=== PATIENT | female | born 1990 | race African-American/Black ===

== ENCOUNTER 2016-07-31 07:40 | Inpatient (IN) ==
[2016-07-31 08:31] LABS: BILIRUBIN URINE NEGATIVE (NEGATIVE); BLOOD URINE NEGATIVE (NEGATIVE); CLARITY CLEAR (CLEAR); COLOR YELLOW; GLUCOSE URINE NEGATIVE (NEGATIVE); LEUKOCYTES URINE NEGATIVE (NEGATIVE); NITRITE URINE NEGATIVE (NEGATIVE); PROTEIN URINE NEGATIVE (NEGATIVE); UROBILINOGEN URINE NORMAL
[2016-07-31 08:44] LABS: URINE CULTURE PL NEEDED? YES; URINE EPITHELIAL CELLS <10 /HPF (<10); URINE RBC <10 /HPF (<10); URINE SOURCE CLEAN CATCH; URINE WBC <10 /HPF (<10)
[2016-07-31 08:47] LABS: AGAP 12; ALKALINE PHOSPHATASE 81 U/L (32-104); AMYLASE 61 U/L (20-200); BUN 6 mg/dL (8-22); CALCIUM 9.2 mg/dL (8.8-10.2); CHLORIDE 101 mmol/L (98-107); COSMO 265; GOT 27 U/L (10-30); GPT 28 U/L (10-36); LIPASE 17 U/L (13-60); POTASSIUM 3.7 mmol/L (3.5-5.1); SODIUM 134 mmol/L (136-145); TCO2 22 mmol/L (25-35); TOTAL PROTEIN 7.3 g/dL (6.3-8.3)
--- NOTE | 2016-07-31 10:42 | Diag Imaging Result Document ---
PROCEDURE NAME: US GB < RUQ (LIMITED) - 07/31/2016 ULTRASOUND OF THE GALLBLADDER, LIMITED: INDICATION: Pain. FINDINGS: The aorta, IVC, and pancreas are within normal limits. The right kidney appears normal. There is no hydronephrosis. The gallbladder appears free of stones and sludge and has a normal caliber wall. The common bile duct measures 4 mm. The portal vein is patent. IMPRESSION: Normal right upper quadrant ultrasound. -6
[2016-07-31 11:11] LABS: BASO% 0.1 % (0.0-0.8); EOS# 0.03 X1000 (0.0-0.7); EOS% 0.2 % (0.0-10.0); HEMATOCRIT 40.7 % (37.0-47.0); HEMOGLOBIN 13.8 g/dL (12.0-16.0); IMM GRAN# 0.02 X1000 (0.0-0.04); IMM GRAN% 0.2 % (0.0-0.5); LYMPH% 8.9 % (20.5-51.1); MANUAL DIFF NEEDED? NO; MCH 33.3 PG (27-31); MCHC 33.9 g/dL (33-37); MCV 98.3 FL (81-99); MONO# 0.66 X1000 (0.11-0.59); MONO% 5.3 % (1.7-9.3); MPV 10.2 FL (7.4-10.4); NEUT% 85.3 % (42.2-75.2); PLT 342 X1000 (130-400); RBC 4.14 XMIL (4.2-5.4)
[2016-07-31] MEDS ORDERED: NS 1,000 ML IV ONE (14:06)
[2016-07-31] MEDS ORDERED: ZOSYN 3.375 GM/NS 3.375 GM/50 ML IVPB IV ONE (14:09)
--- NOTE | 2016-07-31 14:11 | PROVIDER DOCUMENTATION ---
This chart was entered by Paty Madison Scribe, acting as scribe for Jonathan Alfred MD. HPI-Abdominal Pain/GI Problem - General Chief Complaint: Abdominal Pain Stated Complaint: ABD PAIN Time Seen by Provider: 07/31/16 09:09 Source: patient Allergies/Adverse Reactions: Patient Allergies Allergy/AdvReac Type Severity Reaction Status Date / Time No Known Allergies Allergy Verified 03/26/16 18:10 Home Medications: Home Medication List Medication Instructions Recorded Confirmed Last Taken Type Pnv Cmb#95/Ferrous Fumarate/FA 1 each PO DAILY 04/28/16 04/28/16 04/27/16 09:00 History [ Tablet] Hydrocodone/APAP 10 mg/325 mg 1 each PO Q3-4H PRN PRN #20 tablet 04/30/16 Unknown Rx [[place]-10] Ibuprofen [Motrin] 800 mg PO Q8H PRN PRN #30 tablet 04/30/16 Unknown Rx - History of Present Illness-ABD Nature of Presenting Problems: Pt is 26 y/o F presents to the ED with RUQ pain. Pt states pain started last night at 1000. Pt states N and V. Abdominal Pain Onset Location: reports: epigastric Pain Radiation: reports: RUQ Quality of Pain: reports: aching, cramping, throbbing Severity in ED: reports: moderate Onset/Duration: reports: last night (1000) Timing: reports: still present Activities at Onset: reports: light activity Modifying Factors: improves with: nothing Associated Symptoms: reports: nausea, vomiting. denies: anxiety, arm pain, back /neck pain, chest pain, constipation, cough, diaphoresis, diarrhea, dizziness, EENT symptoms, fatigue, fever/chills, genitourinary problems, headaches, heartburn, joint pain, loss of appetite, malaise, muscle aches, sinus congestion /drainage, rash, seizure, shortness of breath, sensory/motor loss, pain with inspiration, swelling/mass in abdomen, syncope, weakness, trouble walking Last BM: 24 hours ago Dark Stools Present?: reports: none noticed Rectal Bleeding: reports: none Rectal Pain: reports: none # of Vomiting Episodes: 2 Emesis Description: reports: clear Bruising or Bleeding Gums?: No Similar Symptoms Previously?: Yes Recently seen or treated by another doctor?: No Review of Systems - Adult - REVIEW OF SYSTEMS - ADULT Constitutional: reports: no symptoms reported Eyes: reports: no symptoms reported Ears, Nose, Mouth & Throat: reports: no symptoms reported Cardiovascular: reports: no symptoms reported Respiratory: reports: no symptoms reported Gastrointestinal: reports: abdominal pain, nausea, vomiting. denies: diarrhea Genitourinary: reports: no symptoms reported Musculoskeletal: reports: no symptoms reported Integumentary: reports: no symptoms reported Neurological: reports: no symptoms reported Psychiatric: reports: no symptoms reported Endocrine: reports: no symptoms reported Hematologic/Lymphatic: reports: no symptoms reported Allergic/Immunologic: reports: no symptoms reported All Other Systems: Reviewed and Negative Past History - Adult - PAST MEDICAL HISTORY-ADULT Review of Records: reports: Nursing Assessment Review, Medications Reviewed, Social history reviewed & non-contributory. Major Childhood Illnesses: reports: denies history Cardiovascular: reports: denies history Respiratory: reports: denies history Gastrointestinal: reports: ulcer Obstetrical/Gynecological: reports: denies history Genitourinary: reports: denies history Musculoskeletal: reports: denies history Neurological: reports: denies history Endocrine/Immune: reports: denies history Other Conditions: reports: denies history - PRIOR SURGERIES/PROCEDURES Surgical/Procedure History: reports: tonsillectomy - IMMUNIZATION STATUS Childhood Immunizations: See Nurse Assessment Flu Vaccine: See Nurse Assessment - FAMILY HISTORY Family History: reviewed, not pertinent - SOCIAL HISTORY Smoking: cigarettes, less than 1 pack/day Provider spent 3-5 mins advising pt. on dangers of tobacco.: Discussed manners to quit use, and f/u contacts for add'l counseling. Substance Use: denies Living Situation: family Physical Exam-General - PHYSICAL EXAM-ADULT Initial Vital Signs Reviewed: Yes - CONSTITUTIONAL General Appearance: appears well, alert, no apparent distress - EYES Eyes: PERRL/EOMI, pink conjunctivae - HEAD, EARS, NOSE, MOUTH & THROAT HENMT: normocephalic/atraumatic, moist mucous membranes, normal ENT inspection, TMs normal, pharynx normal - NECK Neck: non-tender, full range of motion, supple, normal inspection - RESPIRATORY Respiratory: chest non-tender, lungs clear, normal breath sounds, no pleuratic chest pain, no respiratory distress, no accessory muscle use - CARDIOVASCULAR Cardiovascular: normal peripheral pulses, regular rate, rhythm, no edema, no gallop, no JVD, no murmur - GASTROINTESTINAL (ABDOMEN) Abdominal Exam: normal bowel sounds, soft, no organomegaly, no pulsatile mass, tenderness (RUQ) - LYMPHATIC Lymphatic: no adenopathy - MUSCULOSKELETAL Back Exam: normal inspection, no CVA tenderness, no vertebral tenderness Extremity: normal range of motion, non-tender, normal gait, normal inspection, no pedal edema, no calf tenderness, normal capillary refill - SKIN Integumentary: normal color, normal turgor, warm/dry - NEUROLOGIC Neurologic: grossly normal - PSYCHIATRIC Psych/Mental Status: normal mood/affect, oriented x 3 Progress - PLAN OF CARE/RESULTS Progress/Plan/Lab Results: Vital Signs - 8 hr 07/31/16 07:46 Temperature 97.8 F Pulse Rate 92 H Respiratory Rate 18 Blood Pressure 135/75 O2 Sat by Pulse Oximetry 100 Laboratory Results - last 24 hr 07/31/16 07/31/16 07/31/16 07:56 07:56 08:11 Sodium 134 L Potassium 3.7 Chloride 101 Carbon Dioxide 22 L Anion Gap 12 BUN 6 L Creatinine 0.7 Estimated GFR/1.73 m2 > 60 BUN/Creatinine Ratio 9 Glucose 91 Calculated Osmolality 265 Calcium 9.2 Total Bilirubin 0.30 AST 27 ALT 28 Alkaline Phosphatase 81 Total Protein 7.3 Albumin 4.0 Globulin 3.0 Albumin/Globulin Ratio 1.0 Amylase 61 Lipase 17 Urine Source CLEAN CATCH Urine Color YELLOW Urine Clarity CLEAR Urine pH 5.0 Ur Specific [place] 1.010 Urine Protein NEGATIVE Urine Ketones NEGATIVE Urine Blood NEGATIVE Urine Nitrite NEGATIVE Urine Bilirubin NEGATIVE Urine Urobilinogen NORMAL Urine Microscopic RBC <10 Urine WBC NEGATIVE Urine Microscopic WBC <10 Ur Epithelial Cells <10 Urine Bacteria 4+ Urine Glucose NEGATIVE Urine Test NEGATIVE Orders Category Date Time Status NPO Diet 07/31/16 07:49 Active AMYLASE [CHEM] Stat Lab 07/31/16 08:11 Completed COMPREHENSIVE METABOLIC PANEL [CHEM] Stat Lab 07/31/16 08:11 Completed LIPASE [CHEM] Stat Lab 07/31/16 08:11 Completed TEST-URINE [PREG] Stat Lab 07/31/16 07:[address] W/POSS RFLX CULT [URINALYSIS] Stat Lab 07/31/16 07:56 Completed URINE CULTURE [RM] Routine Lab 07/31/16 08:44 Ordered Result Diagrams: 07/31/16 08:11 05/12/17 08:11 - CT/MRI 1 CT Study: Abdomen, Pelvis Impression: Abnormal CT Results: appendicitis per radiology - ULTRASOUND (By Radiology) 1 US Study: Gallbladder Impression: Normal US Results: normal right upper quadrant ultrasound - CONSULTS/PCP/HOSPITALIST Notification #1 *Consult/PCP/Hospitalist*: Dr. Tristan Time Discussed: 14:04 Reason/Comments: Dr. Alfred consults with Dr. Tristan about Pt Consult Disposition: Will see in ED, Admit Departure - Departure Time of Disposition Decision: 13:58 DIAGNOSIS: Appendicitis Disposition: ADMITTED INPATIENT 09 Certified Medical Emergency: Emergent Condition: Stable Additional Freetext Instructions: ED Follow Up Instructions: You have been treated by a care provider in the Emergency Department. These instructions are being provided to you so you can have an understanding of how to care for yourself upon discharge. Upon discharge from the Emergency Department, you are responsible for making arrangements for follow-up care by a physician of your choice. Take all prescribed medications as directed. Return to the Emergency Department immediately for any new or worsening symptoms. You may call the Physician Referral phone number at [phone] to obtain a list of Physicians who are taking new patients. Referrals and Follow-Ups: Zackary Forman MD [Primary Care Provider] - - Critical Care Note This patient required my direct & personal management of CC.: No This chart was documented by the indicated scribe, (Paty Madison Scribe) and accurately reflects the services I performed and decisions made by me, Jonathan Alfred MD, as attested by the provider's signature.
--- NOTE | 2016-07-31 14:20 | Diag Imaging Result Document ---
PROCEDURE NAME: ABDOMEN/PELVIS W/CONTRAST - 07/31/2016 CT SCAN OF THE ABDOMEN AND PELVIS WITH CONTRAST: FINDINGS: The lung bases show increased attenuation right lower lobe, which may be acute or chronic. The liver appears normal in size and attenuation. No calcified gallstones are appreciated. The spleen, pancreas, adrenal glands, and kidneys appear normal. The appendix is ring enhancing with periappendiceal soft tissue stranding, compatible with acute appendicitis. Appendix measures 9.2 mm. There is a small amount of free fluid within the pelvis. There are ovarian cysts right adnexal region, measuring up to 5 cm. No free air. There is a small amount of free fluid within the pelvis. No abscess is identified. There are mildly prominent mesenteric and retroperitoneal lymph nodes. IMPRESSION: 1. Findings consistent with acute appendicitis. No abscess or free air. 2. Prominent mesenteric and retroperitoneal lymph nodes. 3. Right ovarian cysts measuring up to 5 cm. 4. Small amount of free fluid within the pelvis. Findings were discussed with the ED physician.
[2016-07-31] MEDS ORDERED: REGLAN ONE (16:50)
[2016-07-31] MEDS ORDERED: PEPCID ONE (16:50)
[2016-07-31] MEDS ORDERED: VERSED ONE (16:50)
[2016-07-31] MEDS ORDERED: LR 1,000 ML ONE (16:58)
[2016-07-31] MEDS ORDERED: MARCAINE 0.25% PF/EPI 1:200,000 ONE (16:58)
--- NOTE | 2016-07-31 17:04 | HISTORY AND PHYSICAL ---
DATE OF ADMISSION: 07/31/2016 HISTORY OF PRESENT ILLNESS: This is a 26-year-old female who around 10 o'clock last night developed some vague abdominal pain. This persisted and localized in the right lower quadrant today prompting presentation [facility] where CT scan was obtained that showed evidence of acute appendicitis and a right ovarian cyst. Patient' menstrual periods been overall normal for her. She had a normal 1 early this month. Bowel movement been normal for her. No nausea, vomiting and no vaginal discharge. She is recently in April. PAST MEDICAL HISTORY: Negative. PAST SURGICAL HISTORY: Negative. SOCIAL HISTORY: She smokes a 3rd of a pack cigarettes a day. No alcohol. She has a boyfriend who is here with her today. FAMILY HISTORY: Negative for cancer but has mother that did have acute appendicitis in the past. REVIEW OF SYSTEMS: 10 point negative other than mentioned in HPI PHYSICAL EXAM: Vital signs: Temperature is 99 degrees, pulse 85, blood pressure 118/72, oxygen saturation 99% on room air. She is 200 pounds, 5 foot 2. General: She is alert, in no acute distress. HEENT: There is no scleral icterus. There is no cervical masses. Cardiovascular: Normal rate, regular rhythm. Pulmonary: No increased work of breathing. She is on room air. Abdomen: Soft. She is obese. She has tenderness in the right lower quadrant. No diffuse peritonitis. No tenderness on left side of her abdomen. Integument: Warm and dry. Extremities: There is some trace lower extremity edema. Neck: There is no cervical adenopathy noted. LABS: White count is elevated at 12, hematocrit 40, platelets are 342,000. Creatinine is normal at 0.7. Electrolytes are okay for her. Amylase, lipase normal. LFT normal. Urinalysis negative, test is negative. CT scan shows a dilated fluid-filled appendix with stranding. No free intraabdominal air or fluid. There is a 5 cm right ovarian cyst. There is only trace amount of fluid in the pelvis. There is some prominent mesenteric retroperitoneal lymph nodes. ASSESSMENT AND PLAN: This is an female with a acute appendicitis. Risks, benefits, alternatives including bleeding, infection, abscess formation requiring further surgery, prolonged antibiotics and damage to other structures discussed. We also discussed the findings of her ovarian cyst and will examine this time of surgery and may need cystectomy versus oophorectomy. She understands, consents to all of this. Will proceed to operating room tonight. She is given Zosyn in emergency department and will make decisions going forward after the findings at surgery whether she needs any of this going forward in the future. She is NPO now. Will advance her diet as tolerated this evening and plan for her to go home if she progresses postop. cc: Bob Tristan MD MTDD
--- NOTE | 2016-07-31 18:26 | OPERATIVE NOTE ---
PROCEDURE DATE: 07/31/2016 PREOPERATIVE DIAGNOSES: Acute appendicitis. POSTOPERATIVE DIAGNOSIS: Acute appendicitis. PROCEDURE PERFORMED: Laparoscopic appendectomy. ESTIMATED BLOOD LOSS: 5 mL. SPECIMENS: Appendix. INDICATION: female, who presented with approximately 12 hours of right lower quadrant abdominal pain. In the emergency department CT scan showed dilated fluid-filled stranding of her appendix. She had a mild leukocytosis. The imaging and CT was consistent with acute appendicitis and appendectomy was indicated. OPERATIVE FINDINGS: No evidence of perforation. There is some serous fluid in the pelvis. There is dilated and erythematous injected appendix. It was quite firm. There was a large simple appearing ovarian cyst with no strangulation, torsion of the ovary and no inflammatory adhesions here. OPERATIVE NOTE: Risks, benefits and alternatives discussed with the patient. She consented to the procedure. She was seen in the preoperative area. Surgery to be performed was confirmed. She was taken to the operating room, placed in supine position. General anesthesia was induced. Pre incisional antibiotics were confirmed. A Ron catheter was placed. The abdomen is prepped with chlorhexidine and draped in usual fashion. After time-out was performed periumbilical block was made. A curvilinear infraumbilical incision was made and incision along the midline fascia was performed. Abdomen was entered in an open sterile fashion. A 12 mm Shital trocar was placed and the abdomen was insufflated to 15 mmHg. She tolerated this well. We inspected the abdomen. There was no injury of underlying structures. Placed her in Trendelenburg left side down. We placed a 5 mm trocar in the suprapubic location above the level of the bladder below the left lower quadrant lateral to the inferior epigastric vessels. She tolerated all this well. We grasped the appendix, elevated this, created a window at the base of the cecum. The using a Gold load stapler we divided the base of the appendix. With the 2nd and 3rd fire of the Gold load 30 mm stapler we divided the mesoappendix. Hemostasis was noted. We irrigated the abdomen and inspected all quadrants. No other abnormalities noted. We placed the appendix in an EndoCatch bag. There was no evidence of perforation either upon entry or after removing the appendix. After irrigating the abdomen, and confirming hemostasis we again desufflated the abdomen. After removing the trocars under direct visualization we brought the appendix out through the umbilical incision. We closed the fascia with interrupted 0 Vicryl sutures. Skin was closed 4-0 Monocryl. Dermabond was applied. Counts correct x2. She tolerated procedure well. There was no noted complication. She was woken, transferred to PACU in good condition. I spoke with the family. We will keep her overnight and advance her diet as tolerated. cc: Bob Tristan MD MTDD
[2016-07-31] MEDS ORDERED: DIPRIVAN 1% ONE (19:03)
[2016-07-31] MEDS: ZOFRAN IV PRN (20:09)
[2016-07-31] MEDS: NORCO-7.5 PO PRN (20:13)
[2016-08-01] MEDS: LR 1,000 ML IV SCH ×2 (01:22→03:02)
[2016-08-01] MEDS: NORCO-7.5 PO PRN (01:23)
[2016-08-01] MEDS: ZOFRAN IV PRN (01:23)
[2016-08-01 08:12] VITALS: BP 108/58
--- NOTE | 2016-08-02 04:20 | DISCHARGE SUMMARY ---
ADMISSION DATE: 07/31/2016 DISCHARGE DATE: 08/01/2016 HISTORY OF PRESENT ILLNESS: This is a 26-year-old female who presented to the emergency room with acute onset of abdominal pain. Found have acute appendicitis. HOSPITAL COURSE: She went for laparoscopic appendectomy. For details, please see dictated operative note. Postoperatively, she was admitted to my service. Her diet was advanced. Her pain was controlled with oral medicines alone. She was voiding without difficulty and remained afebrile overnight. The morning after her surgery, incisions were clean, dry, and intact. She was appropriately tender and nondistended. She was tolerating a diet and voiding, and was felt safe for discharge home. We gave her detailed discharge instructions to call with fevers, nausea, vomiting, changes in her bowel habits, unable to have bowel movement, or redness from her incisions. She is to avoid heavy lifting greater than 10 pounds. I gave her a prescription for [place], Colace, and Zofran. She can continue taking her other home medicines. DISPOSITION: Home to self-care. DISCHARGE DIET: Discussed GI soft diet. DISCHARGE INSTRUCTIONS: She will call with any concerns. cc: Bob Tristan MD
[2016-08-03] MEDS ORDERED: ROBINUL ONE (09:14)
[2016-08-03] MEDS ORDERED: NEOSTIGMINE ONE (09:14)
[2016-08-03] MEDS ORDERED: ZOFRAN ONE (09:14)
[2016-08-03] MEDS ORDERED: ZEMURON ONE (09:15)
[2016-08-03] MEDS ORDERED: XYLOCAINE-MPF 2% ONE (09:15)
[2016-08-03] MEDS ORDERED: QUELICIN (DOSE) ONE (09:15)
[2016-08-03] MEDS ORDERED: ANESTHESIA PB SET 88 IN 5742 ONE (09:15)
[2016-08-03] MEDS ORDERED: LR 1,000 ML ONE (09:15)
== END 2016-08-01 10:53 | disposition home or self-care (01) ==
LOC: 4N 07:40 → P.ED 07:40 → OBSVTOIN 14:41 → 4N 15:15
PROVIDERS: ADMIT Surgery; ATTEND Surgery